=== PATIENT | male | born 1945 | race Hispanic/Latino ===

== ENCOUNTER 2018-02-05 13:08 | Inpatient (IN) | payer MEDICARE ==
[~2018-02-05] VITALS: Ht 162.6 cm; Wt 90.3 kg
[~2018-02-05 13:08] MED LIST: AMLO10TA7 PO; ASPI-1197 PO; ATOR10TA69 PO; METO-408 PO; PANT40TA PO; RIVA15TA PO
[2018-02-05 16:03] LABS: INR 1.76 (0.85-1.15); PROTHROMBIN TIME 18.3 SEC (9.6-11.6)
[2018-02-05 16:05] LABS: EOSINOPHILS % (AUTO) 0.7 % (0.0-8.0); LYMPHOCYTES % (AUTO) 38.9 % (21.0-51.0); MEAN CORPUSCULAR HEMOGLOBIN 33.3 pg (27.0-33.0); MEAN CORPUSCULAR HGB CONC 33.1 g/dL (32.0-36.0); MEAN CORPUSCULAR VOLUME 100.5 fL (79-99); MONOCYTES % (AUTO) 6.6 % (3.0-13.0); NEUTROPHILS % (AUTO) 53.8 % (40.0-77.0); NUCLEATED RED BLOOD CELLS 3.2 % (0.0-0.19); PLATELET COUNT (AUTO) 47 K/uL (130-400); RED BLOOD CELL COUNT(AUTO) 2.02 MIL/uL (4.50-6.20); RED CELL DISTRIBUTION WIDTH 25.4 % (11.0-15.5); WHITE BLOOD COUNT (AUTO) 1.6 K/uL (4.8-10.8)
[2018-02-05 16:07] LABS: APPEARANCE,URINE Clear (CLEAR); BILIRUBIN,URINE Negative (NEGATIVE); COLOR,URINE Yellow (YELLOW); GLUCOSE, URINE (UA) >=1000 mg/dL (NEGATIVE); KETONES,URINE Negative (NEGATIVE); LEUKOCYTE ESTERASE ,URINE Negative (NEGATIVE); NITRATE,URINE Negative (NEGATIVE); OCCULT BLOOD,URINE Nonhemolyzed Trace (NEGATIVE); PH,URINE 5.5 (5.0-8.0); PROTEIN,URINE POS 1+ (NEGATIVE); UROBILINOGEN,URINE 0.2 mg/dL (0.2-1.0)
[2018-02-05 16:12] LABS: HEMATOCRIT 20.3 % (42-54)
[2018-02-05] MEDS ORDERED: SODIUM CHLORIDE 0.9% 1000ML 1,000 ML IV SCH (16:26)
[2018-02-05] MEDS ORDERED: MORPHINE SULFATE 4 MG/1ML SYG IV PRN (16:30)
[2018-02-05] MEDS ORDERED: ACETAMINOPHEN 325 MG TAB PO PRN ×2 (16:30)
[2018-02-05] MEDS ORDERED: DIPHENHYDRAMINE HCL 25 MG CAPSULE PO SCH (16:30)
[2018-02-05] MEDS ORDERED: ACETAMINOPHEN 325 MG TAB PO SCH (16:30)
[2018-02-05] MEDS: CEFEPIME HCL 2 GM VIAL IVP SCH (16:30)
[2018-02-05] MEDS ORDERED: HYDRALAZINE HCL 20 MG/ML VIAL IV PRN (16:30)
[2018-02-05] MEDS ORDERED: ONDANSETRON HCL 4 MG/2 ML VIAL IV PRN (16:30)
[2018-02-05] MEDS ORDERED: LORATADINE 10 MG TABLET PO SCH (16:30)
[2018-02-05 16:47] LABS: CREATININE 1.6 mg/dL (0.5-1.5); POTASSIUM 3.5 mmol/L (3.5-5.1)
[2018-02-05 16:51] LABS: ALBUMIN 2.6 g/dL (3.5-5.0); BILIRUBIN,TOTAL 0.9 mg/dL (0.2-1.0); TOTAL PROTEIN, SERUM 6.8 g/dL (6.0-8.3)
[2018-02-05 16:53] LABS: AMYLASE 19 U/L (25-115); LIPASE < 50 U/L (114-286)
[2018-02-05 16:57] LABS: WBC,URINE 0-1 /HPF (0-1)
[2018-02-05 16:58] LABS: BACTERIA,URINE Rare /HPF (None Seen); SQUAMOUS EPITHELIAL CELL,UR Rare /HPF (0-2)
[2018-02-05 17:35] LABS: BAND NEUTROPHILS % (MANUAL) 2 % (0-2); BASOPHILS % (MANUAL) 1 % (0-2); LYMPHOCYTES % (MANUAL) 33 % (22-44); MAN.DIFF COMMENT-IMPRESSION MANUAL DIFFERENTIAL; MONOCYTES % (MANUAL) 4 % (2-9); REACTIVE LYMPHOCYTES 3 % (0-0); SEGMENTED NEUTROPHILS % 57 % (40-70)
[2018-02-05] MEDS ORDERED: LEVO25TA54 PO (17:54)
[2018-02-05] MEDS ORDERED: EMPA10TA PO (17:54)
[2018-02-05] MEDS ORDERED: ACET-2743 PO (17:54)
[2018-02-05] MEDS ORDERED: MULT-462 PO (17:54)
[2018-02-05] MEDS ORDERED: SODIUM CHLORIDE 0.9% 50 ML IV ONE (21:08)
[2018-02-06] MEDS: CEFEPIME HCL 2 GM VIAL IVP SCH (00:30)
[2018-02-06 01:25] VITALS: BP 114/59
[2018-02-06 03:57] VITALS: BP 124/48
[2018-02-06 07:00] VITALS: BP 129/61
--- NOTE | 2018-02-06 08:00 | NUR ---
AM ASSESSMENT PT LAYING IN BED, HOB ELEVATED 30 DEGREES, WATCHING TV. NEUTROPENIC PRECAUTIONS. A/O X3, FORGETFUL. NO SOB. NO DISTRESS NOTED. DENIES CHEST PAIN OR DISCOMFORT. DENIES PALPITATIONS. TELE: SR60s. DENIES N/V AND/OR DIARRHEA. UP W/ASSISTANCE. S/P PRBC X 1; PENDING H&H. 0.9% NACL INFUSING @ 100 ML/HR. UP W/ASSISTANCE. INSTRUCTED TO CALL FOR ASSISTANCE. CALL JEFFY W/IN REACH.
[2018-02-06 08:07] LABS: CREATININE 1.6 mg/dL (0.5-1.5); POTASSIUM 3.3 mmol/L (3.5-5.1)
[2018-02-06 08:27] LABS: HEMATOCRIT 23.6 % (42-54); MEAN CORPUSCULAR HEMOGLOBIN 32.2 pg (27.0-33.0); MEAN CORPUSCULAR HGB CONC 32.5 g/dL (32.0-36.0); MEAN CORPUSCULAR VOLUME 98.9 fL (79-99); NUCLEATED RED BLOOD CELLS 2.8 % (0.0-0.19); PLATELET COUNT (AUTO) 48 K/uL (130-400); RED BLOOD CELL COUNT(AUTO) 2.39 MIL/uL (4.50-6.20); RED CELL DISTRIBUTION WIDTH 22.5 % (11.0-15.5); WHITE BLOOD COUNT (AUTO) 1.4 K/uL (4.8-10.8)
[2018-02-06] MEDS ORDERED: PANTOPRAZOLE SODIUM 40 MG TABLET.DR PO SCH (09:00)
[2018-02-06 09:13] LABS: BASOPHILS % (MANUAL) 4 % (0-2); EOSINOPHILS % (MANUAL) 1 % (1-6); LYMPHOCYTES % (MANUAL) 26 % (22-44); MAN.DIFF COMMENT-IMPRESSION MANUAL DIFFERENTIAL; MONOCYTES % (MANUAL) 12 % (2-9); SEGMENTED NEUTROPHILS % 57 % (40-70)
[2018-02-06 11:00] VITALS: BP 115/54
[2018-02-06] MEDS ORDERED: CEFEPIME HCL 2 GM VIAL IVP SCH (14:00)
--- NOTE | 2018-02-06 14:45 | NUR ---
DISCHARGE VERBAL & WRITTEN DISCHARGE INSTRUCTIONS REVIEWED & GIVEN TO PT & FRIEND. QUESTIONS ENCOURAGED & CLARIFIED. PROPER CARE & MGT OF ANEMIA REVIEWED. PT TO CONTINUE HOME MEDICATIONS. PT TO F/U W/DR SILVERIO IN 1 WEEK. PT STATES HE WILL BE GOING TO SEE MD TOMORROW. CODY NEEDLE DC'D USING ASEPTIC TECHNIQUE. BANDAID APPLIED. TELE MAGDIEL REMOVED. PT & FRIEND TO GATHER PERSONAL BELONGINGS. WILL NOTIFY STAFF WHEN READY TO BE TAKEN TO PRIVATE VEHICLE.
--- NOTE | 2018-02-06 15:02 | NUR ---
DC PLAN VISITED WITH PATIENT. PATIENT LIVES WITH SPOUSE. INDEPENDENT ABLE TO PERFORM ADL'S. PATIENT HAS NO SERVICES OR DME'S. FEELS SAFE TO RETURN HOME. Addendum: 02/06/18 at 1503 by TONE CORTES RN CM Amended: Links added.
--- NOTE | 2018-02-06 15:10 | NUR ---
DISCHARGE PT TAKEN TO PRIVATE VEHICLE VIA WC BY Edwina SHELLEY PCP, ACCOMPANIED BY FRIEND. NO DISTRESS NOTED.
== END 2018-02-06 15:03 | disposition home or self-care (01) | DRG 810 ==
LOC: EDH 13:08 → EDHIP 16:26 → 2DH 18:06
PROVIDERS: ADMIT Internal Medicine; ATTEND Internal Medicine
PROC: 30233N1 Transfusion of Nonautologous Red Blood Cells into Peripheral Vein, Percutaneous Approach (ICD-10-PCS; principal; 2018-02-05)
DX: D61.818 Other pancytopenia (principal); D46.9 Myelodysplastic syndrome, unspecified; I10 Essential (primary) hypertension; E11.69 Type 2 diabetes mellitus with other specified complication; D89.9 Disorder involving the immune mechanism, unspecified; E78.2 Mixed hyperlipidemia; F02.80 Dementia in other diseases classified elsewhere, unspecified severity, without behavioral disturbance, psychotic disturbance, mood disturbance, and anxiety; Z90.411 Acquired partial absence of pancreas; Z92.21 Personal history of antineoplastic chemotherapy
CPT/HCPCS: 36415; 71045; 80048; 80053; 81001; 82150; 82550; 83690; 83880; 84484; 85025; 85027; 85060; 85610; 85730; 86850; 86900; 86901; 86922; 93005; G0378; J0692; J7030; P9016